=== PATIENT | male | born 1990 | race Caucasian/White ===

== ENCOUNTER → 2020-01-01 | Outpatient (CLI) | payer OTHER ==
--- NOTE | 2020-01-02 02:31 | REP ---
Clinical: Neck pain. Technique: AP, lateral, flexion/extension, bilateral oblique, and open-mouth views of the cervical spine. Findings: Straightening of normal lordosis is appreciated without acute fracture / compression injury or subluxation. There is focal early moderate degenerative change at C5-6 including endplate sclerosis, minimal disc space narrowing, and very subtle early anterior spurring. Remainder examination is normal / age appropriate. Impression: Focal early moderate degenerative spondylosis at C5-6. Electronically Signed by Evaristo Suarez MD 01/02/2020 02:22 A
--- NOTE | 2020-01-02 02:33 | REP ---
Clinical: Chest pain . Comparison: None . Technique: PA and lateral. Findings: The mediastinum and cardiac silhouette are normal. The lung brady are clear and without acute consolidation, effusion, or pneumothorax. The skeletal structures are intact and normal. Impression: 1. No acute cardiopulmonary process. Electronically Signed by Evaristo Suarez MD 01/02/2020 02:25 A
== END ==
LOC: M WUC 11:32
PROVIDERS: ATTEND Physician Assistant Medical
DX: M47.892 Other spondylosis, cervical region (principal); R07.89 Other chest pain; R10.13 Epigastric pain; M54.2 Cervicalgia